=== PATIENT | male | born 1965 | race African-American/Black ===

== ENCOUNTER 2023-02-26 04:17 | Emergency (ER) | payer OTHER, SELFPAY ==
[2023-02-26] VITALS (35 sets, daily range): BP systolic 154–181; BP diastolic 81–108; PULSE 63–71; RESP 12–21; TEMP 37.1; O2SAT 95–100
--- NOTE | ~2023-02-26 | US_ITS ---
EXAMINATION: US venous doppler [facility] DATE: 02/26/2023 07:51 INDICATION: Lower limb swelling. TECHNIQUE: Grayscale ultrasound images without and with compression and Doppler ultrasound images of the bilateral lower extremity veins were obtained. COMPARISON: None. FINDINGS: The visualized portions of right common femoral vein, profunda (deep) femoral vein, femoral vein, pop liteal vein, peroneal veins, posterior tibial veins, and greater saphenous vein outflow are patent. The visualized portions of left common femoral vein, profunda femoral vein, femoral vein, popliteal v ein, peroneal veins, posterior tibial veins, and greater saphenous vein outflow are patent. IMPRESSION: 1. No deep venous thrombosis. Reviewed, dictated and finalized at location A.
--- NOTE | ~2023-02-26 | XR_ITS ---
EXAMINATION: XR knee RT 3V DATE: 02/26/2023 06:06 INDICATION: Right knee pain. TECHNIQUE: 3 views of right knee were obtained. COMPARISON: None. FINDINGS: Bone alignment is normal. No fracture. There is mild tricompartmental osteoarthritis charac terized by tiny osteophytes. No joint space narrowing. There is an enthesophyte at the proximal attac hment of medial collateral ligament. No knee joint effusion. IMPRESSION: 1. Mild right knee osteoarthritis. Reviewed, dictated and finalized at location A.
[2023-02-26 04:35] LABS: Glucose Point of Care 361 mg/dl (65-105)
[2023-02-26] MEDS: INSULIN HUMAN REGULAR (*BKC) 100 UNITS/ML IV PUSH (05:52)
[2023-02-26 05:58] LABS: Basophils Percent Auto 0.5 % (0.2-1.2); Eosinophils Absolute Auto 0.1 K/mm3 (0-0.3); Eosinophils Percent Auto 1.7 % (0-4.4); Hematocrit 38.9 % (42.0-52.0); Hemoglobin 13.1 g/dL (14.0-18.0); Immature Granulocyte Absolute 0.03 K/mm3 (0.00-0.031); Immature Granulocyte Percent A 0.5 % (0-0.5); Lymphocytes Absolute Auto 1.98 K/mm3 (0.9-3.2); Lymphocytes Percent Auto 34.2 % (18.3-44.2); Mean Corpuscular HGB Conc 33.7 g/dl (32-36); Mean Corpuscular Hemoglobin 30.9 pg (26-34); Mean Corpuscular Volume 91.7 fl (80-100); Mean Platelet Volume 11.4 fl (7.4-10.4); Monocytes Absolute Auto 0.7 K/mm3 (0.1-0.6); Monocytes Percent Auto 11.2 % (2.6-8.5); Neutrophils Percent Auto 51.9 % (45.5-73.1); Platelet Count Result 225 k/mm3 (150-375); Red Blood Count 4.24 M/mm3 (4.6-6.20); Red Cell Distribution Width 13.8 % (11.5-14.5); White Blood Count 5.8 K/mm3 (4.5-10.0)
[2023-02-26 06:08] LABS: Prothrombin Time 13.3 Seconds (11.1-14.7)
[2023-02-26 06:09] LABS: Partial Thromboplastin Time 25.1 SECONDS (22.3-36.8)
--- NOTE | 2023-02-26 06:10 | ED.GENADULT ---
HPI - General Adult General Chief complaint: Unspecified Stated complaint: LEG SWELLING Time Seen by Provider: 02/26/23 04:48 History of Present Illness HPI narrative: 57-year-old male presented the emergency department for evaluation of bilateral leg swelling and right knee pain after having a ground-level fall today patient reports he tripped over an uneven sidewalk. Patient denies striking head denies any loss of consciousness. Patient states he has had lower extremity swelling for an extended period of time but is unsure how long its been going on. Patient is diabetic and states he does take his diabetes medications. Patient does have a history of moderate disability and is present with his sister. Patient denies any chest pain or shortness of breath. Patient denies any nausea vomiting diarrhea. Patient's only complaint is right knee pain. Related Data Allergies Allergy/AdvReac Type Severity Reaction Status Date / Time No Known Allergies Allergy Verified 02/26/23 05:51 Review of Systems Review of Systems: All systems reviewed & are unremarkable except as noted in HPI and below Exam Narrative: APPEARANCE: Well appearing, no pain, no distress, well-nourished. HEAD: normocephalic, atraumatic. EYES: PERRLA/EOMI, conjunctivae clear. NOSE: Normal no drainage EARS:TMS clear with good light reflex. THROAT: Pharynx clear, no exudate. NECK: Supple. No adenopathy, no masses. RESPIRATORY: Airway patent, respirations nonlabored. Clear to auscultation bilaterally, no rales, rhonchi, wheezing. CARDIOVASCULAR: Regular rate and rhythm without murmurs rubs or gallops. ABDOMINAL: Soft, nontender, nondistended, normal bowel sounds MUSCULOSKELETAL: Contusion to right knee and bilateral lower extremity swelling NEURO: Alert. Cranial nerves II through XII intact. Grossly intact SKIN: Warm, dry. Normal Color Course Course Emergency Course: At time of signout ultrasound and response to insulin is pending. Vital Signs Vital signs: Vital Signs Pulse Rate 68 02/26/23 04:28 Respiratory Rate 15 02/26/23 04:28 Pulse Oximetry 98 02/26/23 04:28 Temperature 98.8 F 02/26/23 04:30 Pulse Rate 64 02/26/23 08:45 Respiratory Rate 14 02/26/23 08:45 Blood Pressure 171/81 H 02/26/23 10:47 Pulse Oximetry 99 02/26/23 11:04 Oxygen Delivery Room Air 02/26/23 04:30 Medical Decision Making Vital Signs Vital Signs: Vital Signs Pulse Rate 68 02/26/23 04:28 Respiratory Rate 15 02/26/23 04:28 Pulse Oximetry 98 02/26/23 04:28 Temperature 98.8 F 02/26/23 04:30 Pulse Rate 64 02/26/23 08:45 Respiratory Rate 14 02/26/23 08:45 Blood Pressure 171/81 H 02/26/23 10:47 Pulse Oximetry 99 02/26/23 11:04 Oxygen Delivery Room Air 02/26/23 04:30 Lab Data Lab results reviewed: Yes I reviewed the patient's lab results. 02/26/23 05:51 02/26/23 06:39 Labs: Lab Results 02/26/23 02/26/23 02/26/23 Range/Units 04:26 05:51 06:21 WBC 5.8 (4.5-10.0) K/mm3 RBC 4.24 L (4.6-6.20) M/mm3 Hgb 13.1 L (14.0-18.0) g/dL Hct 38.9 L (42.0-52.0) % MCV 91.7 (80-100) fl MCH 30.9 (26-34) pg MCHC 33.7 (32-36) g/dl RDW 13.8 (11.5-14.5) % Plt Count 225 (150-375) k/mm3 MPV 11.4 H (7.4-10.4) fl Immature Gran % (Auto) 0.5 (0-0.5) % Neut % (Auto) 51.9 (45.5-73.1) % Lymph % (Auto) 34.2 (18.3-44.2) % [place] % (Auto) 11.2 H (2.6-8.5) % Eos % (Auto) 1.7 (0-4.4) % Baso % (Auto) 0.5 (0.2-1.2) % Lymph # (Auto) 1.98 (0.9-3.2) K/mm3 [place] # (Auto) 0.7 H (0.1-0.6) K/mm3 Eos # (Auto) 0.1 (0-0.3) K/mm3 Baso # (Auto) 0.0 (0.0-0.1) K/mm3 Abs Immat Gran (auto) 0.03 (0.00-0.031) K/mm3 Absolute Neuts (auto) 3.0 (1.3-6.7) K/mm3 Absolute Nucleated RBC 0.0 (0.0-0.012) K/mm3 Nucleated RBC % 0.0 (0.0-0.2) % PT 13.3 (11.1-14.7) Seconds INR 1.0 APTT 25.1 (22.3-36.8)
[2023-02-26 06:25] LABS: Glucose Point of Care 300 mg/dl (65-105)
[2023-02-26] MEDS: ACETAMINOPHEN 500 MG TABLET 1000 MG PO (06:27)
[2023-02-26 06:50] LABS: Appearance Urine Clear (Clear); Bilirubin Urine Negative (Negative); Blood Urine Negative (Negative); Color Urine Yellow (Yellow); Glucose Urine UA 3+ mg/dL (Negative); Ketones Urine 1+ mg/dL (Negative); Leukocyte Esterase Ur Negative LEU/UL (Negative); Nitrate Urine Negative (Negative); Protein Urine Negative (Negative); pH Urine 5.5 (5.0-9.0)
[2023-02-26 06:55] LABS: Add Urine Microscopic? NO; Specific Grav Ur 1.038 (1.001-1.035)
[2023-02-26 06:56] LABS: Alanine Aminotransferase 68 U/L (6-50); Albumin Level 3.9 g/dL (3.5-5.1); Alkaline Phosphatase 97 U/L (38-126); Anion Gap 5 mmol/L (8-16); Aspartate Amino Transferase 49 U/L (17-59); Bilirubin,Total 0.6 mg/dL (0.2-1.3); Blood Urea Nitrogen 11 mg/dL (9-20); Calcium 8.8 mg/dL (8.4-10.2); Carbon Dioxide 24 mmol/L (22-30); Chloride 101 mmol/L (98-107); Estimated CRCL calculation 154 ml/min; Estimated Glomerular Filt Rate > 60; Glucose 290 mg/dL (65-110); Potassium 3.9 mmol/L (3.4-5.0); Sodium 130 mmol/L (137-145)
[2023-02-26 07:05] LABS: NT Pro B Type Natriuretic Pept < 20 pg/mL (19.9-100)
[2023-02-26] MEDS: SODIUM CHLORIDE 0.9% IV 1,000 ML 999 ML IV CONT (07:15)
[2023-02-26 10:00] LABS: Glucose Point of Care 352 mg/dl (65-105)
[2023-02-26] MEDS: metFORMIN HCL XR 500 MG TAB.SR.24H 1000 MG PO (11:13)
== END 2023-02-26 11:17 | disposition home or self-care (01) ==
PROVIDERS: Emergency Medicine; Emergency Provider Emergency Medicine; PCP Internal Medicine Infectious Disease
DX: E11.65 Type 2 diabetes mellitus with hyperglycemia (principal); S89.91XA Unspecified injury of right lower leg, initial encounter; Z79.84 Long term (current) use of oral hypoglycemic drugs; W01.0XXA Fall on same level from slipping, tripping and stumbling without subsequent striking against object, initial encounter
CPT/HCPCS: 36415; 73562; 80053; 81003; 82948; 83880; 85025; 85610; 85730; 93970; 96361; 96374; 99284; A9270; J1815; J7030

== ENCOUNTER 2023-05-12 19:48 | Emergency (ER) | payer OTHER, SELFPAY ==
--- NOTE | ~2023-05-12 | CT_ITS ---
EXAMINATION: CT brain wo con DATE: 05/12/2023 23:29 INDICATION: Altered mental status. TECHNIQUE: Computed tomography (CT) of the head was performed without intravenous contrast. The mA wa s adjusted according to patient size. Iterative reconstruction technique was employed. The dose-lengt h product was 681.00 mGy-cm. COMPARISON: None FINDINGS: There is no intracranial hemorrhage, acute infarction, or abnormal intracranial mass lesion . The ventricles are normal in size. There is a reconstruction plate at the floor of left orbit. Ther e is mucosal thickening in the paranasal sinuses. The mastoid air cells are normal. IMPRESSION: 1. Normal brain. Reviewed, dictated and finalized at location E. MANAGER IMPRESSION: 1. Normal brain.
[2023-05-12 19:44] VITALS: BP 144/85; PULSE 77; RESP 18; TEMP 36.5; O2SAT 98
[2023-05-12 19:52] LABS: Glucose Point of Care 256 mg/dl (65-105)
[2023-05-12 20:15] LABS: Basophils Percent Auto 0.6 % (0.2-1.2); Eosinophils Absolute Auto 0.1 K/mm3 (0-0.3); Eosinophils Percent Auto 1.5 % (0-4.4); Hematocrit 38.4 % (42.0-52.0); Hemoglobin 12.8 g/dL (14.0-18.0); Immature Granulocyte Absolute 0.02 K/mm3 (0.00-0.031); Immature Granulocyte Percent A 0.3 % (0-0.5); Lymphocytes Absolute Auto 2.57 K/mm3 (0.9-3.2); Lymphocytes Percent Auto 37.5 % (18.3-44.2); Mean Corpuscular HGB Conc 33.3 g/dl (32-36); Mean Corpuscular Volume 89.9 fl (80-100); Mean Platelet Volume 10.6 fl (7.4-10.4); Monocytes Absolute Auto 0.7 K/mm3 (0.1-0.6); Monocytes Percent Auto 10.1 % (2.6-8.5); Neutrophils Absolute Auto 3.4 K/mm3 (1.3-6.7); Platelet Count Result 261 k/mm3 (150-375); Red Blood Count 4.27 M/mm3 (4.6-6.20); Red Cell Distribution Width 12.6 % (11.5-14.5); White Blood Count 6.9 K/mm3 (4.5-10.0)
[2023-05-12 20:17] LABS: Appearance Urine Clear (Clear); Bilirubin Urine Negative (Negative); Blood Urine Negative (Negative); Color Urine Yellow (Yellow); Glucose Urine UA 1+ mg/dL (Negative); Ketones Urine Negative (Negative); Leukocyte Esterase Ur Negative LEU/UL (Negative); Nitrate Urine Negative (Negative); Protein Urine Negative (Negative); Specific Grav Ur 1.004 (1.001-1.035); Urobilinogen Urine 0.2 mg/dL (<2.0)
[2023-05-12] MEDS: SODIUM CHLORIDE 0.9% IV 1,000 ML 999 ML IV CONT (20:17)
[2023-05-12] MEDS: ONDANSETRON INJ 4 MG/2 ML VIAL IV PUSH (20:17)
[2023-05-12 20:26] LABS: Alanine Aminotransferase 68 U/L (6-50); Albumin Level 4.3 g/dL (3.5-5.1); Alkaline Phosphatase 93 U/L (38-126); Anion Gap 9 mmol/L (8-16); Aspartate Amino Transferase 54 U/L (17-59); Bilirubin,Total 0.4 mg/dL (0.2-1.3); Blood Urea Nitrogen 12 mg/dL (9-20); Calcium 9.4 mg/dL (8.4-10.2); Carbon Dioxide 23 mmol/L (22-30); Chloride 104 mmol/L (98-107); Estimated CRCL calculation 134 ml/min; Estimated Glomerular Filt Rate > 60; Glucose 238 mg/dL (65-110); Potassium 3.6 mmol/L (3.4-5.0); Sodium 136 mmol/L (137-145)
[2023-05-12 20:28] LABS: Ethanol 194 mg/dL (<10)
[2023-05-12 20:31] LABS: Add Urine Microscopic? NO
--- NOTE | 2023-05-12 21:10 | ED.GENADULT ---
HPI - General Adult General Chief complaint: Altered Mental Status Stated complaint: ams History of Present Illness HPI narrative: Patient is a 57-year-old gentleman who presents emergency department with chief complaint of altered mental status. Patient was found by local police sitting on the sidewalk patient states that she drinks somewhere between a sixpack and a 12 pack of beer tonight patient reports he is really not supposed to bring that much and that his significant other does not want him having any fine. Patient reports he has history of type 2 diabetes and takes oral medications for his diabetes. Patient denies head injury denies loss of consciousness patient denies suicidal or homicidal ideation. Related Data Allergies Allergy/AdvReac Type Severity Reaction Status Date / Time No Known Allergies Allergy Verified 05/12/23 19:57 Review of Systems Review of Systems: A 10 system review of systems was completed on the patient and is negative except for what is stated in the HPI. Nursing and ancillary documentation was reviewed. Exam Narrative: GENERAL: Well-appearing, well-nourished, and in no acute distress. HEAD: Normocephalic, atraumatic. EYES: PERRLA and EOMI. ENT: Nares clear, no rhinorrhea or epistaxis. Mucous membranes moist. NECK: Supple. CHEST: Clear to auscultation. No respiratory distress. HEART: Regular rate and rhythm. No murmur heard. Normal peripheral pulses. ABDOMEN: Soft, nontender, nondistended, normal active bowel sounds. EXTREMITIES: Normal range of motion. No edema. SKIN: Warm, dry, no rash. NEURO: No focal deficits. Alert and oriented x3. Does appear to be intoxicated PSYCH: Normal mood and affect. Course Vital Signs Vital signs: Vital Signs Temperature 36.5 C 05/12/23 19:44 Pulse Rate 77 05/12/23 19:44 Respiratory Rate 18 05/12/23 19:44 Blood Pressure 144/85 H 05/12/23 19:44 Pulse Oximetry 98 05/12/23 19:44 Oxygen Delivery Room Air 05/12/23 19:44 Temperature 36.5 C 05/12/23 19:44 Pulse Rate 66 05/13/23 04:07 Respiratory Rate 15 05/13/23 04:07 Blood Pressure 150/70 H 05/13/23 02:21 Pulse Oximetry 100 05/13/23 04:07 Oxygen Delivery Room Air 05/12/23 19:44 Medical Decision Making MDM Narrative Medical decision making narrative: Differential diagnosis includes substance abuse, alcohol intoxication, intracranial hemorrhage, Patient was observed in the emergency department to the point of sobriety family members were able to transport him home Vital Signs Vital Signs: Vital Signs Temperature 36.5 C 05/12/23 19:44 Pulse Rate 77 05/12/23 19:44 Respiratory Rate 18 05/12/23 19:44 Blood Pressure 144/85 H 05/12/23 19:44 Pulse Oximetry 98 05/12/23 19:44 Oxygen Delivery Room Air 05/12/23 19:44 Temperature 36.5 C 05/12/23 19:44 Pulse Rate 66 05/13/23 04:07 Respiratory Rate 15 05/13/23 04:07 Blood Pressure 150/70 H 05/13/23 02:21 Pulse Oximetry 100 05/13/23 04:07 Oxygen Delivery Room Air 05/12/23 19:44 Lab Data 05/12/23 20:08 05/12/23 20:08 Labs: Lab Results 05/12/23 05/12/23 05/13/23 Range/Units 19:51 20:08 02:25 WBC 6.9 (4.5-10.0) K/mm3 RBC 4.27 L (4.6-6.20) M/mm3 Hgb 12.8 L (14.0-18.0) g/dL Hct 38.4 L (42.0-52.0) % MCV 89.9 (80-100) fl MCH 30.0 (26-34) pg MCHC 33.3 (32-36) g/dl RDW 12.6 (11.5-14.5) % Plt Count 261 (150-375) k/mm3 MPV 10.6 H (7.4-10.4) fl Immature Gran % (Auto) 0.3 (0-0.5) % Neut % (Auto) 50.0 (45.5-73.1) % Lymph % (Auto) 37.5 (18.3-44.2) % [place] % (Auto) 10.1 H (2.6-8.5) % Eos % (Auto) 1.5 (0-4.4) % Baso % (Auto) 0.6 (0.2-1.2) % Lymph # (Auto) 2.57 (0.9-3.2) K/mm3 [place] # (Auto) 0.7 H (0.1-0.6) K/mm3 Eos # (Auto) 0.1 (0-0.3) K/mm3 Baso # (Auto) 0.0 (0.0-0.1) K/mm3 Abs Immat Gran (auto) 0.02 (0.00-0.031) K/mm3 Abso
[2023-05-12 21:26] VITALS: BP 121/66; PULSE 70; RESP 15; O2SAT 96
[2023-05-12 22:48] VITALS: BP 125/84; PULSE 68; RESP 16; O2SAT 97
[2023-05-12 23:59] VITALS: PULSE 70; RESP 18; O2SAT 98
[2023-05-13 01:44] VITALS: PULSE 66; RESP 17; O2SAT 100
[2023-05-13 02:21] VITALS: BP 150/70; PULSE 67; RESP 15; O2SAT 98
[2023-05-13 02:30] LABS: Glucose Point of Care 266 mg/dl (65-105)
[2023-05-13 02:52] LABS: Alveolar/Arterial O2 Gradient 26.8 mmHg; Base Excess ABG -5.3 mEq/l (+/-2.0); Fractional Inspired Oxygen 21 %; HCO3 ABG 19.1 mEq/l (22.0-26.0); Oxygen Content ABG 17.6 %vol (16.0-22.0); Oxyhemoglobin 93.9 % THb (90.0-100.0); PCO2 ABG 33.8 mmHg (35.0-45.0); PO2 ABG 82.5 mmHg (80.0-100.0); PO2 FiO2 Ratio Arterial Blood 3.93 %; Total Hemoglobin 13.3 g/dL (12.0-18.0); pH ABG 7.369 (7.350-7.450)
[2023-05-13 02:53] LABS: Device ROOM AIR; Modified Allen's Test Pass; Site Drawn RIGHT RADIAL
[2023-05-13 03:04] LABS: Acetaminophen < 10 ug/mL (10-30); Salicylate < 1.0 mg/dL (2-20)
[2023-05-13 03:15] LABS: Amphetamine Screen Urine Negative (Negative); Barbiturate Screen Urine Negative (Negative); Benzodiazepines Screen Urine Negative (Negative); Cannabinoid Screen Urine Negative (Negative); Cocaine Screen Urine Negative (Negative); Methadone Screen Urine Negative (Negative); Opiate Screen Urine Negative (Negative); Phencyclidine Screen Urine Negative (Negative)
--- NOTE | 2023-05-13 04:06 | PC.NURSE ---
Attempted to call pts sister, no answer
[2023-05-13 04:07] VITALS: PULSE 66; RESP 15; O2SAT 100
== END 2023-05-13 06:11 | disposition home or self-care (01) ==
PROVIDERS: Emergency Provider Emergency Medicine; PCP Internal Medicine Infectious Disease
DX: F10.129 Alcohol abuse with intoxication, unspecified (principal); Y90.6 Blood alcohol level of 120-199 mg/100 ml; E11.9 Type 2 diabetes mellitus without complications; Z79.84 Long term (current) use of oral hypoglycemic drugs
CPT/HCPCS: 36415; 36600; 70450; 80053; 80307; 81003; 82805; 82948; 85025; 96361; 96374; 99284; J2405; J7030

== ENCOUNTER 2023-05-26 08:17 | Emergency (ER) | payer OTHER, SELFPAY ==
[2023-05-26] VITALS (7 sets, daily range): BP systolic 146–159; BP diastolic 81–98; PULSE 68–90; RESP 16–26; TEMP 36.6; O2SAT 98–100
--- NOTE | ~2023-05-26 | XR_ITS ---
EXAMINATION: XR chest 1V portable DATE: 05/26/2023 08:53 INDICATION: Lower limb swelling TECHNIQUE: frontal view of the chest was obtained. COMPARISON: None FINDINGS: The lungs are clear with no focal airspace opacities, pulmonary edema, pleural effusion or pneumothor ax. The cardiomediastinal silhouette is normal. 7 x 4 mm mushroom-shaped metallic pellet projects ove r the right cardiophrenic angle. Correlate with history of prior trauma. Mild thoracic spondylosis. IMPRESSION: 1. No acute cardiopulmonary disease. Reviewed, dictated and finalized at location A. RT COOLER
--- NOTE | 2023-05-26 08:21 | ECG_ITS ---
Measurements Intervals [place] Rate: 68 P: -28 [place]: 188 QRS: 33 QRSD: 80 T: 51 QT: 381 QTc: 408 Interpretive Statements SINUS RHYTHM ANTEROSEPTAL INFARCT, AGE INDETERMINATE ABNORMAL ECG NO PREVIOUS ECG AVAILABLE FOR COMPARISON Electronically Signed On 05-26-2023 10:34:39 PROJECT ASSOCIATE by Joe Olivera D.O.
[2023-05-26 08:36] LABS: Basophils Absolute Auto 0.1 K/mm3 (0.0-0.1); Basophils Percent Auto 0.9 % (0.2-1.2); Eosinophils Absolute Auto 0.1 K/mm3 (0-0.3); Eosinophils Percent Auto 1.7 % (0-4.4); Hematocrit 40.5 % (42.0-52.0); Hemoglobin 13.3 g/dL (14.0-18.0); Immature Granulocyte Absolute 0.03 K/mm3 (0.00-0.031); Immature Granulocyte Percent A 0.5 % (0-0.5); Lymphocytes Percent Auto 34.4 % (18.3-44.2); Mean Corpuscular HGB Conc 32.8 g/dl (32-36); Mean Corpuscular Hemoglobin 30.2 pg (26-34); Mean Platelet Volume 10.7 fl (7.4-10.4); Monocytes Absolute Auto 0.6 K/mm3 (0.1-0.6); Neutrophils Percent Auto 51.5 % (45.5-73.1); Platelet Count Result 221 k/mm3 (150-375); Red Cell Distribution Width 13.2 % (11.5-14.5); White Blood Count 5.8 K/mm3 (4.5-10.0)
--- NOTE | 2023-05-26 08:45 | ED.EXTPRO ---
HPI - Extremity Problem General Chief complaint: Extremity Problem,Nontraumatic Stated complaint: bilat leg swelling/pain Time Seen by Provider: 05/26/23 08:18 History of Present Illness HPI Narrative: 57-year-old male presenting to the emergency department for evaluation increased bilateral leg swelling that often happens with the weather change. Patient states over the last few days has had increased lower extremity swelling. Patient denies having any falls. patient denies any chest pain or shortness of breath. Related Data Home Medications Medication Instructions Recorded Confirmed No Home Medications 05/26/23 05/26/23 Allergies Allergy/AdvReac Type Severity Reaction Status Date / Time No Known Allergies Allergy Verified 05/26/23 08:27 Review of Systems Review of Systems: All systems reviewed & are unremarkable except as noted in HPI and below Exam Narrative: APPEARANCE: Well appearing, no pain, no distress, well-nourished. HEAD: normocephalic, atraumatic. EYES: PERRLA/EOMI, conjunctivae clear. NOSE: Normal no drainage EARS:TMS clear with good light reflex. THROAT: Pharynx clear, no exudate. NECK: Supple. No adenopathy, no masses. RESPIRATORY: Airway patent, respirations nonlabored. Clear to auscultation bilaterally, no rales, rhonchi, wheezing. CARDIOVASCULAR: Regular rate and rhythm without murmurs rubs or gallops. ABDOMINAL: Soft, nontender, nondistended, normal bowel sounds MUSCULOSKELETAL: Moves all extremities. abrasion to right brooks, no significant edema. NEURO: Alert. Cranial nerves II through XII intact. Grossly intact SKIN: Warm, dry. Normal Color PSYCHIATRIC: Normal affect/mood. Course Course Emergency Course: 57-year-old male presented to ED for evaluation of lower extremity swelling. Patient denies any associated chest pain or shortness of breath. Patient denies any nausea vomiting diarrhea. Patient's chest x-ray showed no evidence of pulmonary edema. The patient has +1 pitting edema lower extremities. BNP was not elevated. Patient states this is a recurrent issue for him. Patient was encouraged on close follow-up with his primary care physician. Vital Signs Vital signs: Vital Signs Temperature 97.9 F 05/26/23 08:17 Pulse Rate 74 05/26/23 08:17 Respiratory Rate 16 05/26/23 08:17 Blood Pressure 159/81 H 05/26/23 08:17 Pulse Oximetry 98 05/26/23 08:17 Oxygen Delivery Room Air 05/26/23 08:17 Temperature 97.9 F 05/26/23 08:17 Pulse Rate 77 05/26/23 09:33 Respiratory Rate 16 05/26/23 09:33 Blood Pressure 151/90 H 05/26/23 09:33 Pulse Oximetry 99 05/26/23 09:33 Oxygen Delivery Room Air 05/26/23 08:17 MDM - Extremity (Nontraumatic) Differential Diagnosis Differential diagnosis: Likely cellulitis, superficial thrombophlebitis, deep venous thrombosis of upper extremity, lower extremity edema and deep vein thrombosis of lower extremity Lab Data 05/26/23 08:31 05/26/23 08:31 Labs: Lab Results 05/26/23 Range/Units 08:31 WBC 5.8 (4.5-10.0) K/mm3 RBC 4.40 L (4.6-6.20) M/mm3 Hgb 13.3 L (14.0-18.0) g/dL Hct 40.5 L (42.0-52.0) % MCV 92.0 (80-100) fl MCH 30.2 (26-34) pg MCHC 32.8 (32-36) g/dl RDW 13.2 (11.5-14.5) % Plt Count 221 (150-375) k/mm3 MPV 10.7 H (7.4-10.4) fl Immature Gran % (Auto) 0.5 (0-0.5) % Neut % (Auto) 51.5 (45.5-73.1) % Lymph % (Auto) 34.4 (18.3-44.2) % [place] % (Auto) 11.0 H (2.6-8.5) % Eos % (Auto) 1.7 (0-4.4) % Baso % (Auto) 0.9 (0.2-1.2) % Lymph # (Auto) 2.00 (0.9-3.2) K/mm3 [place] # (Auto) 0.6 (0.1-0.6) K/mm3 Eos # (Auto) 0.1 (0-0.3) K/mm3 Baso # (Auto) 0.1 (0.0-0.1) K/mm3 Abs Immat Gran (auto) 0.03 (0.00-0.031) K/mm3 Absolute Neuts (auto) 3.0 (1.3-6.7) K/mm3 Absolute Nucleated RBC 0.0 (0.0-0.012) K/mm3 Nucleated RBC % 0.0 (0.0-0.2) % Sodium 134 L (137-145) mmol/L Potassium 4.5 (3.4-5.0) mmol/L Chloride
[2023-05-26 08:47] LABS: Alanine Aminotransferase 50 U/L (6-50); Albumin Level 4.2 g/dL (3.5-5.1); Alkaline Phosphatase 104 U/L (38-126); Anion Gap 10 mmol/L (8-16); Aspartate Amino Transferase 45 U/L (17-59); Bilirubin,Total 0.8 mg/dL (0.2-1.3); Blood Urea Nitrogen 6 mg/dL (9-20); Calcium 9.1 mg/dL (8.4-10.2); Carbon Dioxide 24 mmol/L (22-30); Chloride 100 mmol/L (98-107); Estimated CRCL calculation 155 ml/min; Estimated Glomerular Filt Rate > 60; Glucose 266 mg/dL (65-110); Potassium 4.5 mmol/L (3.4-5.0); Sodium 134 mmol/L (137-145)
[2023-05-26 09:07] LABS: NT Pro B Type Natriuretic Pept < 20 pg/mL (19.9-100)
[2023-05-26] MEDS: IBUPROFEN 600 MG TABLET PO (09:39)
--- NOTE | 2023-05-26 09:59 | PC.NURSE ---
Pt taken to waiting room, refused taxi and wanted to wait on friend.
== END 2023-05-26 10:00 | disposition home or self-care (01) ==
PROVIDERS: Emergency Provider Emergency Medicine; PCP Internal Medicine Infectious Disease
DX: R22.43 Localized swelling, mass and lump, lower limb, bilateral (principal); R94.31 Abnormal electrocardiogram [ECG] [EKG]
CPT/HCPCS: 36415; 71045; 80053; 83880; 85025; 93005; 99283; A9270

== ENCOUNTER 2023-07-11 08:02 | Emergency (ER) | payer OTHER, SELFPAY ==
--- NOTE | ~2023-07-11 | XR_ITS ---
XR chest 1V portable DATE: 07/11/2023 08:59 INDICATION: Congestive heart failure TECHNIQUE: Portable upright AP chest on 07/11/2023 at 0849 hours COMPARISON: 05/26/2023 portable AP chest at 0844 hours FINDINGS: No pulmonary infiltrate or consolidation, pleural effusion or pulmonary vascular congestion or pneumothorax. Normal heart size. Is aortic calcification and mild unfolding. No hilar or mediasti nal enlargement. Degenerative spurring of the thoracic spine. Metallic foreign body in the shape of a pellet overlies the medial right lower chest, present on 05/06 IMPRESSION: No active cardiopulmonary disease Aortic atherosclerosis Degenerative spurring of the thoracic spine. Reviewed, dictated and finalized at location A. RAFT SEAT UPHOLSTERER
--- NOTE | 2023-07-11 08:11 | ED.LOWEXIN ---
HPI - Extremity Injury (Lower) General Chief Complaint: Extremity Injury, Lower Stated Complaint: LE pain since april Time Seen by Provider: 07/11/23 08:09 Source: patient and EMS Mode of arrival: EMS History of Present Illness HPI Narrative: 58 years old male came from home by ambulance complaining of increased swelling of the lower extremities with pain started months ago, ran out of medicine for unknown duration. Patient was discharged recently from [facility] for the same symptoms. He denies any fever, chills, nausea, vomiting, shortness of breath or chest pain. Patient reports having Rashi wrap from [employer] which does not work Related Data Home Medications Medication Instructions Recorded Confirmed atorvastatin 40 mg tablet mg 07/11/23 dorzolamide 22.3 mg-timolol 6.8 07/11/23 mg/mL eye drops empagliflozin 25 mg tablet mg 07/11/23 (Jardiance) finasteride 5 mg tablet mg 07/11/23 gabapentin 100 mg capsule mg 07/11/23 gabapentin 300 mg capsule mg 07/11/23 glimepiride 4 mg tablet mg 07/11/23 ibuprofen 600 mg tablet mg 07/11/23 ketorolac 0.4 % eye drops drp 07/11/23 ketorolac 0.5 % eye drops drp 07/11/23 losartan 100 tablet 07/11/23 mg-hydrochlorothiazide 25 mg tablet sitagliptin phosphate 100 mg mg 07/11/23 tablet (Januvia) tamsulosin 0.4 mg capsule mg PO 07/11/23 07/11/23 Allergies Allergy/AdvReac Type Severity Reaction Status Date / Time No Known Allergies Allergy Verified 07/11/23 08:29 Review of Systems Review of Systems: All systems reviewed & are unremarkable except as noted in HPI and below Exam Narrative: General appearance: Well-developed, well-nourished Skin: Normal color, 3+ edema lower extremity bilaterally up to the knees, no blisters no weeping Head: Normocephalic, nontraumatic Eyes: Clear conjunctiva ENT: Oropharynx normal, ears normal, nose normal Neck: Supple, nontender Chest and respiratory: Airway patent, no respiratory distress, no accessory muscle use Heart: Regular rate/rhythm Abdomen: Soft, nontender, no organomegaly, quiet bowel sounds Vascular: Normal peripheral pulses, normal capillary refill. Musculoskeletal: Normal range of motion, nontender back Neurologic: Alert and oriented ?3, CV/CVN CV TSC SYSTEM OPERATOR is normal as tested, no gross motor deficit Course Vital Signs Vital signs: Vital Signs Temperature 36.6 C 07/11/23 08:20 Pulse Rate 80 07/11/23 08:20 Respiratory Rate 20 07/11/23 08:20 Blood Pressure 101/77 07/11/23 08:20 Pulse Oximetry 100 07/11/23 08:20 Oxygen Delivery Room Air 07/11/23 08:20 Temperature 36.6 C 07/11/23 08:20 Pulse Rate 80 07/11/23 08:20 Respiratory Rate 20 07/11/23 08:20 Blood Pressure 101/77 07/11/23 08:20 Pulse Oximetry 100 07/11/23 08:20 Oxygen Delivery Room Air 07/11/23 08:20 MDM - Extremity Injury (Lower) MDM Narrative Medical decision making narrative: Patient presents with chronic leg edema bilaterally for a while. Vital signs are stable Physical examination showed 2+ edema lower extremity up to the knees bilaterally, no weeping Differential diagnosis dependent edema, CHF, renal failure, hepatic failure, deep vein thrombosis Workup today showed negative D-DIMER, normal BNP, normal chest x-ray, IN SIGNIFICANTLY EKG. DEPENDENT EDEMA IS MY CONCERN. PATIENT WAS ADVISED TO HAVE COMPRESSION STOCKING, KEEP LEG ELEVATED, DISCHARGED ON HYDROCHLOROTHIAZIDE 12.5 MG DAILY FOR 2 WEEKS Differential Diagnosis Differential diagnosis: Likely other (CHF, dependent edema, deep vein thrombosis, noncompliance with medications) Medical Records Attestation: I reviewed the patient's medical records. Lab Data
[2023-07-11 08:20] VITALS: BP 101/77; PULSE 80; RESP 20; TEMP 36.6; O2SAT 100
--- NOTE | 2023-07-11 08:28 | ECG_ITS ---
Measurements Intervals [place] Rate: 69 P: [place]: 0 QRS: 66 QRSD: 84 T: 33 QT: 374 QTc: 402 Interpretive Statements SINUS RHYTHM CANNOT RULE OUT SEPTAL INFARCT, AGE INDETERMINATE BASELINE ARTIFACT- II, III, AVR, AVL, AVF, V1-V2, V4-V6 ABNORMAL ECG COMPARED TO ECG 05/26/2023 08:26:02 NO SIGNIFICANT CHANGES Electronically Signed On 07-11-2023 9:31:11 STAPLE CUTTER by Joe Olivera D.O.
[2023-07-11 08:43] LABS: Basophils Percent Auto 0.7 % (0.2-1.2); Eosinophils Absolute Auto 0.1 K/mm3 (0-0.3); Eosinophils Percent Auto 2.2 % (0-4.4); Hematocrit 42.8 % (42.0-52.0); Hemoglobin 13.8 g/dL (14.0-18.0); Immature Granulocyte Absolute 0.01 K/mm3 (0.00-0.031); Immature Granulocyte Percent A 0.2 % (0-0.5); Lymphocytes Absolute Auto 1.82 K/mm3 (0.9-3.2); Lymphocytes Percent Auto 40.4 % (18.3-44.2); Mean Corpuscular HGB Conc 32.2 g/dl (32-36); Mean Corpuscular Hemoglobin 30.2 pg (26-34); Mean Corpuscular Volume 93.7 fl (80-100); Monocytes Absolute Auto 0.5 K/mm3 (0.1-0.6); Neutrophils Percent Auto 44.5 % (45.5-73.1); Platelet Count Result 212 k/mm3 (150-375); Red Blood Count 4.57 M/mm3 (4.6-6.20); Red Cell Distribution Width 13.9 % (11.5-14.5); White Blood Count 4.5 K/mm3 (4.5-10.0)
[2023-07-11 08:52] LABS: Alanine Aminotransferase 63 U/L (6-50); Albumin Level 4.3 g/dL (3.5-5.1); Alkaline Phosphatase 98 U/L (38-126); Anion Gap 9 mmol/L (8-16); Aspartate Amino Transferase 50 U/L (17-59); Bilirubin,Total 0.8 mg/dL (0.2-1.3); Blood Urea Nitrogen 13 mg/dL (9-20); Calcium 9.6 mg/dL (8.4-10.2); Carbon Dioxide 25 mmol/L (22-30); Chloride 105 mmol/L (98-107); Estimated CRCL calculation 135 ml/min; Estimated Glomerular Filt Rate > 60; Glucose 212 mg/dL (65-110); Potassium 4.2 mmol/L (3.4-5.0); Sodium 139 mmol/L (137-145)
[2023-07-11] MEDS: HYDROcodone/acetaminophen (*CRX) 5-325 MG TABLET 1 TAB PO (09:01)
[2023-07-11 09:04] LABS: NT Pro B Type Natriuretic Pept < 20 pg/mL (19.9-100); Troponin I < 0.012 ng/mL (0.000-0.034)
[2023-07-11 09:16] LABS: INR 0.9; Partial Thromboplastin Time 24.2 SECONDS (22.3-36.8)
[2023-07-11 09:18] LABS: D Dimer 0.44 ug/mL (<0.48)
[2023-07-11 13:00] VITALS: BP 150/93; PULSE 75; RESP 20; O2SAT 100
== END 2023-07-11 13:03 | disposition home or self-care (01) ==
PROVIDERS: Emergency Provider Emergency Medicine; PCP Internal Medicine Infectious Disease
DX: R60.0 Localized edema (principal); M79.662 Pain in left lower leg; M79.661 Pain in right lower leg; Z79.84 Long term (current) use of oral hypoglycemic drugs
CPT/HCPCS: 36415; 71045; 80053; 83880; 84484; 85025; 85380; 85610; 85730; 93005; 99284; A9270

== ENCOUNTER 2023-08-23 22:22 | Emergency (ER) | payer OTHER, SELFPAY ==
--- NOTE | ~2023-08-23 | XR_ITS ---
Portable chest x-ray Comparison: 07/11/2023 Clinical History: Swelling Findings: Lungs are clear, without focal consolidation or pleural effusion. Cardiomediastinal silho uette is stable. Bones and soft tissues are unremarkable. Impression: Clear lungs. Reviewed, dictated and finalized at location . ITY SYSTEMS MANAGER Impression: Clear lungs.
[2023-08-23 20:48] VITALS: BP 165/82; PULSE 79; RESP 15; TEMP 36.5; O2SAT 100
[2023-08-24 00:51] VITALS: BP 159/97; PULSE 69; RESP 20; TEMP 36.9; O2SAT 100
--- NOTE | 2023-08-24 00:55 | PC.NURSE ---
Patient states I ate green party chicken wings and I shouldn't have and that is why my legs are swollen .
--- NOTE | 2023-08-24 02:02 | ED.EXTPRO ---
HPI - Extremity Problem General Chief complaint: Extremity Problem,Nontraumatic Stated complaint: leg swelling Time Seen by Provider: 08/24/23 01:24 History of Present Illness HPI Narrative: 58-year-old male presents via EMS for evaluation of lower extremity edema. Patient states this been going on ?a long time?. States his swelling is improved from his baseline. He has been seen in this emergency department multiple times for lower extremity edema in the past few months. He has been advised to wear compression stockings. States he has not been wearing compression stockings because girlfriend does not know how to put them on. Denies rash, fever, chest pain or shortness of breath, cough. No history of CHF. Related Data Home Medications Medication Instructions Recorded Confirmed atorvastatin 40 mg tablet mg 07/11/23 dorzolamide 22.3 mg-timolol 6.8 07/11/23 mg/mL eye drops empagliflozin 25 mg tablet mg 07/11/23 (Jardiance) finasteride 5 mg tablet mg 07/11/23 gabapentin 100 mg capsule mg 07/11/23 gabapentin 300 mg capsule mg 07/11/23 glimepiride 4 mg tablet mg 07/11/23 ibuprofen 600 mg tablet mg 07/11/23 ketorolac 0.4 % eye drops drp 07/11/23 ketorolac 0.5 % eye drops drp 07/11/23 losartan 100 tablet 07/11/23 mg-hydrochlorothiazide 25 mg tablet sitagliptin phosphate 100 mg mg 07/11/23 tablet (Januvia) tamsulosin 0.4 mg capsule mg PO 07/11/23 07/11/23 Allergies Allergy/AdvReac Type Severity Reaction Status Date / Time No Known Allergies Allergy Unverified 08/23/23 20:15 Review of Systems Review of Systems: CONSTITUTIONAL: Denies fever, chills, or sweats. EYES: Denies visual changes, redness, or discharge. ENT: Denies rhinorrhea, congestion, sore throat, or otalgia. CARDIOVASCULAR: Denies chest pain, palpitations, or edema. RESPIRATORY: Denies cough or dyspnea. GASTROINTESTINAL: Denies abdominal pain, nausea, vomiting, or diarrhea. GENITOURINARY: Denies dysuria or hematuria. SKIN: Denies rash or itching. MUSCULOSKELETAL: See HPI NEUROLOGIC: Denies headache, numbness, or weakness. PSYCHIATRIC: Denies anxiety or depression. Exam Narrative: GENERAL: Well-appearing, well-nourished, and in no acute distress. HEAD: Normocephalic, atraumatic. EYES: PERRLA and EOMI. ENT: Nares clear, no rhinorrhea or epistaxis. Mucous membranes moist. NECK: Supple. CHEST: Clear to auscultation. No respiratory distress. HEART: Regular rate and rhythm. No murmur heard. Normal peripheral pulses. ABDOMEN: Soft, nontender, nondistended, normal active bowel sounds. EXTREMITIES: Normal range of motion. 1+ pitting edema bilaterally without overlying erythema or warmth. No rash. Negative Homans bilaterally. SKIN: Warm, dry, no rash. NEURO: No focal deficits. Alert and oriented x3 Course Vital Signs Vital signs: Vital Signs Temperature 97.7 F 08/23/23 20:48 Pulse Rate 79 08/23/23 20:48 Respiratory Rate 15 08/23/23 20:48 Blood Pressure 165/82 H 08/23/23 20:48 Pulse Oximetry 100 08/23/23 20:48 Temperature 98.5 F 08/24/23 00:51 Pulse Rate 67 08/24/23 02:30 Respiratory Rate 18 08/24/23 02:30 Blood Pressure 157/87 H 08/24/23 02:30 Pulse Oximetry 100 08/24/23 00:51 MDM - Extremity (Nontraumatic) MDM Narrative Medical decision making narrative: 58-year-old male presents to the emergency department for lower extremity edema ?for a long time ago. See HPI for further history. Her vital significant for elevated blood pressure, otherwise unremarkable. Patient is nontoxic on exam. Exam significant for the above. CBCs without leukocytosis. Chemistries show ALT of 58 which is unchanged from baseline. UA significant for glucosuria, no UTI. D-dimer within normal limits. Chest x-ray shows no evidence of pulmonary edema, unchanged from prior. EKG shows sinus rhythm with Q-waves V1 V2, no ischemic changes. No changes when compared to prior. BNP is within normal limits.
--- NOTE | 2023-08-24 02:10 | ECG_ITS ---
Measurements Intervals [place] Rate: 67 P: 15 NH: 201 QRS: 59 QRSD: 84 T: 37 QT: 362 QTc: 383 Interpretive Statements SINUS RHYTHM SEPTAL MYOCARDIAL INFARCTION , OF INDETERMINATE AGE [40+ ms Q WAVE IN V1/V2] COMPARED TO ECG 07/11/2023 08:39:22 NO SIGNIFICANT CHANGES Electronically Signed On 08-24-2023 15:25:03 [employer] by Gisele Beckford M.D.
[2023-08-24 02:27] LABS: Basophils Percent Auto 0.5 % (0.2-1.2); Eosinophils Absolute Auto 0.1 K/mm3 (0-0.3); Eosinophils Percent Auto 1.4 % (0-4.4); Hematocrit 42.9 % (42.0-52.0); Hemoglobin 14.4 g/dL (14.0-18.0); Immature Granulocyte Absolute 0.02 K/mm3 (0.00-0.031); Immature Granulocyte Percent A 0.3 % (0-0.5); Lymphocytes Absolute Auto 1.99 K/mm3 (0.9-3.2); Lymphocytes Percent Auto 34.8 % (18.3-44.2); Mean Corpuscular HGB Conc 33.6 g/dl (32-36); Mean Corpuscular Hemoglobin 30.6 pg (26-34); Mean Corpuscular Volume 91.1 fl (80-100); Monocytes Absolute Auto 0.6 K/mm3 (0.1-0.6); Monocytes Percent Auto 9.6 % (2.6-8.5); Neutrophils Absolute Auto 3.1 K/mm3 (1.3-6.7); Neutrophils Percent Auto 53.4 % (45.5-73.1); Platelet Count Result 230 k/mm3 (150-375); Red Blood Count 4.71 M/mm3 (4.6-6.20); Red Cell Distribution Width 12.9 % (11.5-14.5); White Blood Count 5.7 K/mm3 (4.5-10.0)
[2023-08-24 02:30] VITALS: BP 157/87; PULSE 67; RESP 18
[2023-08-24 02:32] LABS: Appearance Urine Clear (Clear); Bilirubin Urine Negative (Negative); Blood Urine Negative (Negative); Color Urine Yellow (Yellow); Glucose Urine UA 3+ mg/dL (Negative); Ketones Urine Negative (Negative); Leukocyte Esterase Ur Negative LEU/UL (Negative); Nitrate Urine Negative (Negative); Protein Urine Negative (Negative); Specific Grav Ur 1.033 (1.001-1.035); Urobilinogen Urine 0.2 mg/dL (<2.0); pH Urine 5.5 (5.0-9.0)
[2023-08-24 02:37] LABS: Add Urine Microscopic? YES
[2023-08-24 02:39] LABS: D Dimer 0.33 ug/mL (<0.48)
[2023-08-24 02:46] LABS: NT Pro B Type Natriuretic Pept 36 pg/mL (19.9-100)
[2023-08-24 03:06] LABS: Alanine Aminotransferase 58 U/L (6-50); Albumin Level 4.1 g/dL (3.5-5.1); Alkaline Phosphatase 105 U/L (38-126); Anion Gap 4 mmol/L (8-16); Aspartate Amino Transferase 51 U/L (17-59); Bilirubin,Total 0.6 mg/dL (0.2-1.3); Blood Urea Nitrogen 10 mg/dL (9-20); Calcium 9.8 mg/dL (8.4-10.2); Carbon Dioxide 26 mmol/L (22-30); Chloride 104 mmol/L (98-107); Estimated CRCL calculation 118 ml/min; Estimated Glomerular Filt Rate > 60; Glucose 141 mg/dL (65-110); Sodium 134 mmol/L (137-145)
[2023-08-24] MEDS: ACETAMINOPHEN 500 MG TABLET 1000 MG PO (03:37)
[2023-08-24 03:43] VITALS: BP 142/79; PULSE 78; RESP 16; TEMP 36.8; O2SAT 100
== END 2023-08-24 03:46 | disposition home or self-care (01) ==
PROVIDERS: Emergency Provider Physician Assistant; PCP Internal Medicine Infectious Disease
DX: R60.0 Localized edema (principal); Z79.84 Long term (current) use of oral hypoglycemic drugs; R94.31 Abnormal electrocardiogram [ECG] [EKG]
CPT/HCPCS: 36415; 71045; 80053; 81001; 83880; 85025; 85380; 93005; 99283; A9270

== ENCOUNTER 2023-12-20 01:33 | Emergency (ER) | payer OTHER, SELFPAY ==
[2023-12-20 01:29] VITALS: BP 164/87; PULSE 78; RESP 16; TEMP 36.7; O2SAT 99
[2023-12-20 01:43] VITALS: BP 164/87; PULSE 79; RESP 20; TEMP 36.7; O2SAT 100
--- NOTE | 2023-12-20 01:49 | ED.GENADULT ---
HPI - General Adult General Chief complaint: Extremity Problem,Nontraumatic Stated complaint: edema History of Present Illness HPI narrative: This is a 58-year-old male with well documented peripheral edema presenting for swelling of his legs and pain. Patient has been seen in our emergency department multiple times and has been diagnosed with dependent edema repeatedly. He has been instructed to wear compression stockings but has not done this. patient says he is in the ED because he is going to the baseball game today he wants to get his legs sorted out. Patient is requesting pain medication. He would like 3 ibuprofen is. Patient denies chest pain difficulty breathing abdominal pain fevers chills or cough. Related Data Home Medications Medication Instructions Recorded Confirmed atorvastatin 40 mg tablet mg 07/11/23 dorzolamide 22.3 mg-timolol 6.8 07/11/23 mg/mL eye drops empagliflozin 25 mg tablet mg 07/11/23 (Jardiance) finasteride 5 mg tablet mg 07/11/23 gabapentin 100 mg capsule mg 07/11/23 gabapentin 300 mg capsule mg 07/11/23 glimepiride 4 mg tablet mg 07/11/23 ibuprofen 600 mg tablet mg 07/11/23 ketorolac 0.4 % eye drops drp 07/11/23 ketorolac 0.5 % eye drops drp 07/11/23 losartan 100 tablet 07/11/23 mg-hydrochlorothiazide 25 mg tablet sitagliptin phosphate 100 mg mg 07/11/23 tablet (Januvia) tamsulosin 0.4 mg capsule mg PO 07/11/23 07/11/23 Allergies Allergy/AdvReac Type Severity Reaction Status Date / Time No Known Allergies Allergy Verified 12/20/23 01:44 [facility] Past Medical History Medical History Dependent edema Exam Narrative: APPEARANCE: No apparent distress. Head: atraumatic. EYES: EOMI, NOSE: Atraumatic NECK: Trachea midline RESPIRATORY: No increased rate of breathing, clear to auscultation CARDIOVASCULAR: RRR, +1 edema of the lower extremities. Chronic ABDOMINAL: Non-distended MUSCULOSKELETAl: No obvious deformities NEURO: Alert. Moving 4/4 extremities SKIN:: Warm, dry. Normal color PSYCHIATRIC: Normal affect Course Vital Signs Vital signs: Vital Signs Temperature 98.0 F 12/20/23 01:29 Pulse Rate 78 12/20/23 01:29 Respiratory Rate 16 12/20/23 01:29 Blood Pressure 164/87 H 12/20/23 01:29 Pulse Oximetry 99 12/20/23 01:29 Oxygen Delivery Room Air 12/20/23 01:29 Temperature 98.0 F 12/20/23 01:43 Pulse Rate 79 12/20/23 01:43 Respiratory Rate 20 12/20/23 01:43 Blood Pressure 164/87 H 12/20/23 01:43 Pulse Oximetry 100 12/20/23 01:43 Oxygen Delivery Room Air 12/20/23 01:29 Medical Decision Making MDM Narrative Medical decision making narrative: -Course: 58-year-old male presenting with chronic dependent edema. Multiple workups performed in the past with no evidence of DVTs or heart failure. no change in his condition/vs to indicate he has developed heart failure. Patient is requesting pain medication. He was offered Toradol but requested 3 Motrin instead. These were provided the patient was discharged with instructions to get compression stockings for his feet as well as follow-up with his primary care physician. -DDX includes but is not limited to: Dependent edema, heart failure, homeless, etoh intoxication -Interventions: Motrin 600 mg -Shared decision making / Disposition: discharge Vital Signs Vital Signs: Vital Signs Temperature 98.0 F 12/20/23 01:29 Pulse Rate 78 12/20/23 01:29 Respiratory Rate 16 12/20/23 01:29 Blood Pressure 164/87 H 12/20/23 01:29 Pulse Oximetry 99 12/20/23 01:29 Oxygen Delivery Room Air 12/20/23 01:29 Temperature 98.0 F 12/20/23 01:43 Pulse Rate 79 12/20/23 01:43 Respiratory Rate 20 12/20/23 01:43 Blood Pressure 164/87 H 12/20/23 01:43 Pulse Oximetry 100 12/20/23 01:43 Oxygen Delivery Room Air 12/20/23 01:29 Discharge Plan Discharge Clinical Impression:
[2023-12-20] MEDS: IBUPROFEN 600 MG TABLET PO (02:00)
[2023-12-20 02:04] VITALS: BP 179/86; PULSE 78; RESP 23; O2SAT 100
== END 2023-12-20 02:20 | disposition home or self-care (01) ==
PROVIDERS: Emergency Provider Emergency Medicine; PCP Internal Medicine Infectious Disease
DX: R60.0 Localized edema (principal)
CPT/HCPCS: 99282; A9270

== ENCOUNTER 2024-01-18 14:52 | Emergency (ER) | payer OTHER, SELFPAY ==
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
[2024-01-18 14:57] VITALS: BP 156/77; PULSE 62; RESP 16; TEMP 36.6; O2SAT 100
--- NOTE | 2024-01-18 16:39 | ED.EXTPRO ---
HPI - Extremity Problem General Chief complaint: Extremity Problem,Nontraumatic Stated complaint: via EMS bilateral leg pain Time Seen by Provider: 01/18/24 15:49 Source: patient Mode of arrival: EMS Limitations: no limitations History of Present Illness HPI Narrative: This is a 58-year-old male that presents to the emergency department for chronic lower extremity pain. Reports some worsening swelling today. He was seen at another hospital for this already today. Denies chest pain or shortness of breath. Related Data Home Medications Medication Instructions Recorded Confirmed atorvastatin 40 mg tablet mg 07/11/23 dorzolamide 22.3 mg-timolol 6.8 07/11/23 mg/mL eye drops empagliflozin 25 mg tablet mg 07/11/23 (Jardiance) finasteride 5 mg tablet mg 07/11/23 gabapentin 100 mg capsule mg 07/11/23 gabapentin 300 mg capsule mg 07/11/23 glimepiride 4 mg tablet mg 07/11/23 ibuprofen 600 mg tablet mg 07/11/23 ketorolac 0.4 % eye drops drp 07/11/23 ketorolac 0.5 % eye drops drp 07/11/23 losartan 100 tablet 07/11/23 mg-hydrochlorothiazide 25 mg tablet sitagliptin phosphate 100 mg mg 07/11/23 tablet (Januvia) tamsulosin 0.4 mg capsule mg PO 07/11/23 07/11/23 Allergies Allergy/AdvReac Type Severity Reaction Status Date / Time No Known Allergies Allergy Verified 01/18/24 14:52 Review of Systems Review of Systems: CONSTITUTIONAL: Denies fever CARDIOVASCULAR: Reports edema. Denies chest pain RESPIRATORY: Denies dyspnea. SKIN: Denies rash All systems reviewed & are unremarkable except as noted in HPI and below PMFSH Past Medical History Medical History (Updated 01/18/24 @ 17:43 by Mar Lewis PA-C) Dependent edema History of diabetes mellitus History of hyperlipidemia History of hypertension Social History Social History (Updated 01/18/24 @ 16:41 by Mra Lewis PA-C) Alcohol intake: current Exam Narrative: GENERAL: Well-appearing, well-nourished, and in no acute distress. HEAD: Normocephalic, atraumatic. EYES: EOMI. CHEST: Clear to auscultation. No respiratory distress. No wheezes rales or rhonchi HEART: Regular rate and rhythm. No murmur heard. Normal peripheral pulses. EXTREMITIES: Normal range of motion. 1+ pitting edema to the bilateral lower legs. Normal DP pulses. Normal sensation SKIN: Warm, dry, no rash. NEURO: No focal deficits. Alert and oriented x3. PSYCH: Normal mood and affect Course Course Emergency Course: Patient updated on his workup and agrees with plan of care Vital Signs Vital signs: Vital Signs Temperature 97.8 F 01/18/24 14:57 Pulse Rate 62 01/18/24 14:57 Respiratory Rate 16 01/18/24 14:57 Blood Pressure 156/77 H 01/18/24 14:57 Pulse Oximetry 100 01/18/24 14:57 Oxygen Delivery Room Air 01/18/24 14:57 Temperature 97.8 F 01/18/24 14:57 Pulse Rate 62 01/18/24 14:57 Respiratory Rate 16 01/18/24 14:57 Blood Pressure 156/77 H 01/18/24 14:57 Pulse Oximetry 100 01/18/24 14:57 Oxygen Delivery Room Air 01/18/24 14:57 MDM - Extremity (Nontraumatic) MDM Narrative Medical decision making narrative: Patient presents to the emergency department for chronic lower extremity pain and edema. He is afebrile and nontoxic appearing. Oxygen saturation is 100% on room air. CBC without leukocytosis. Metabolic panel with normal kidney function. D-dimer is not elevated age adjusted. Chest x-ray without acute cardiopulmonary abnormality. Patient updated on his workup and agrees with plan of care. Instructed to have further follow-up with his primary provider. He was given warnings to return to the ER Differential Diagnosis Differential diagnosis: Likely cellulitis, lower extremity edema, deep vein thrombosis of lower extremity and other (Heart failure, venous insufficiency) Lab Data Attestation: I reviewed the patient's lab results. 01/18/24 17:01 01/18/24 17:01 Labs: Lab Re
[2024-01-18] MEDS: IBUPROFEN 600 MG TABLET PO (16:42)
[2024-01-18] MEDS: ACETAMINOPHEN 500 MG TABLET 1000 MG PO (16:43)
[2024-01-18 17:08] LABS: Basophils Percent Auto 0.5 % (0.2-1.2); Eosinophils Absolute Auto 0.1 K/mm3 (0-0.3); Eosinophils Percent Auto 1.8 % (0-4.4); Hematocrit 39.6 % (42.0-52.0); Hemoglobin 13.4 g/dL (14.0-18.0); Immature Granulocyte Absolute 0.02 K/mm3 (0.00-0.031); Immature Granulocyte Percent A 0.4 % (0-0.5); Lymphocytes Absolute Auto 2.09 K/mm3 (0.9-3.2); Lymphocytes Percent Auto 37.9 % (18.3-44.2); Mean Corpuscular HGB Conc 33.8 g/dl (32-36); Mean Corpuscular Hemoglobin 31.1 pg (26-34); Mean Corpuscular Volume 91.9 fl (80-100); Mean Platelet Volume 10.2 fl (7.4-10.4); Monocytes Absolute Auto 0.5 K/mm3 (0.1-0.6); Monocytes Percent Auto 9.6 % (2.6-8.5); Neutrophils Absolute Auto 2.8 K/mm3 (1.3-6.7); Neutrophils Percent Auto 49.8 % (45.5-73.1); Platelet Count Result 201 k/mm3 (150-375); Red Blood Count 4.31 M/mm3 (4.6-6.20); Red Cell Distribution Width 13.2 % (11.5-14.5); White Blood Count 5.5 K/mm3 (4.5-10.0)
[2024-01-18 17:18] LABS: Anion Gap 8 mmol/L (4-12); Blood Urea Nitrogen 10 mg/dL (9-20); Calcium 9.2 mg/dL (8.4-10.2); Carbon Dioxide 28 mmol/L (22-30); Chloride 101 mmol/L (98-107); Estimated Glomerular Filt Rate > 60; Glucose 181 mg/dL (65-110); Sodium 137 mmol/L (137-145)
[2024-01-18 17:27] LABS: NT Pro B Type Natriuretic Pept 39 pg/mL (19.9-100)
[2024-01-18 17:28] LABS: D Dimer 0.54 ug/mL (<0.48)
== END 2024-01-18 18:20 | disposition home or self-care (01) ==
PROVIDERS: Emergency Provider Physician Assistant; PCP Internal Medicine Infectious Disease
DX: R60.0 Localized edema (principal); E11.9 Type 2 diabetes mellitus without complications; E78.5 Hyperlipidemia, unspecified; I10 Essential (primary) hypertension
CPT/HCPCS: 36415; 71046; 80048; 83880; 85025; 85380; 99283; A9270

== ENCOUNTER 2024-01-26 07:03 | Emergency (ER) | payer OTHER, SELFPAY ==
[2024-01-26 07:08] VITALS: BP 148/81; PULSE 61; RESP 16; TEMP 36.4; O2SAT 97
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
[2024-01-26] MEDS: KETOROLAC 30 MG/ML VIAL (*BKC) IM (07:22)
[2024-01-26] MEDS: FUROSEMIDE INJ 40 MG/4 ML VIAL 20 MG IM (07:22)
[2024-01-26 08:09] LABS: Alanine Aminotransferase 34 U/L (6-50); Albumin Level 3.9 g/dL (3.5-5.1); Alkaline Phosphatase 96 U/L (38-126); Anion Gap 11 mmol/L (4-12); Aspartate Amino Transferase 27 U/L (17-59); Bilirubin,Total 0.6 mg/dL (0.2-1.3); Blood Urea Nitrogen 9 mg/dL (9-20); Calcium 8.8 mg/dL (8.4-10.2); Carbon Dioxide 23 mmol/L (22-30); Chloride 99 mmol/L (98-107); Estimated Glomerular Filt Rate > 60; Glucose 265 mg/dL (65-110); Potassium 3.9 mmol/L (3.4-5.0); Sodium 133 mmol/L (137-145)
[2024-01-26 08:19] LABS: Basophils Absolute Auto 0.1 K/mm3 (0.0-0.1); Basophils Percent Auto 0.8 % (0.2-1.2); Eosinophils Absolute Auto 0.2 K/mm3 (0-0.3); Eosinophils Percent Auto 2.3 % (0-4.4); Hematocrit 39.9 % (42.0-52.0); Hemoglobin 13.1 g/dL (14.0-18.0); Immature Granulocyte Absolute 0.02 K/mm3 (0.00-0.031); Immature Granulocyte Percent A 0.3 % (0-0.5); Lymphocytes Absolute Auto 2.14 K/mm3 (0.9-3.2); Lymphocytes Percent Auto 33.3 % (18.3-44.2); Mean Corpuscular HGB Conc 32.8 g/dl (32-36); Mean Corpuscular Hemoglobin 30.7 pg (26-34); Mean Corpuscular Volume 93.4 fl (80-100); Mean Platelet Volume 10.5 fl (7.4-10.4); Monocytes Absolute Auto 0.8 K/mm3 (0.1-0.6); Monocytes Percent Auto 11.8 % (2.6-8.5); Neutrophils Absolute Auto 3.3 K/mm3 (1.3-6.7); Neutrophils Percent Auto 51.5 % (45.5-73.1); Platelet Count Result 234 k/mm3 (150-375); Red Blood Count 4.27 M/mm3 (4.6-6.20); Red Cell Distribution Width 13.2 % (11.5-14.5); White Blood Count 6.4 K/mm3 (4.5-10.0)
== END 2024-01-26 09:28 | disposition home or self-care (01) ==
PROVIDERS: Emergency Provider Emergency Medicine; PCP Internal Medicine Infectious Disease
DX: E11.42 Type 2 diabetes mellitus with diabetic polyneuropathy (principal); E78.5 Hyperlipidemia, unspecified; I10 Essential (primary) hypertension; Z79.899 Other long term (current) drug therapy; Z79.84 Long term (current) use of oral hypoglycemic drugs
CPT/HCPCS: 36415; 80053; 85025; 96372; 99284; J1885; J1940